=== PATIENT | female | born 1985 | race American Indian/Alaskan Native ===

== ENCOUNTER 2017-01-19 14:03 | Outpatient (CLI) | payer MEDICAID ==
--- NOTE | 2017-01-20 08:36 | Ultrasound Report ---
OB LIMITED INDICATION: GASTON. COMPARISON: None similar. TECHNIQUE: Transabdominal grayscale ultrasound with Doppler interrogation. Gestation: Berry Position: Cephalic Amniotic Fluid: WNL (7-24 cm) GASTON = 10.7 cm Heart Rate: 157 BPM
== END 2017-01-19 15:55 | disposition home or self-care (01) ==
LOC: TRG 14:03
PROVIDERS: ATTEND Obstetrics & Gynecology
DX: O47.1 False labor at or after 37 completed weeks of gestation (principal); Z3A.38 38 weeks gestation of pregnancy
CPT/HCPCS: 76815

== ENCOUNTER 2017-01-28 11:20 | Inpatient (IN) | payer MEDICAID ==
[2017-01-28 13:22] LABS: Hematocrit 33.5 % (30.3-42.9); Hemoglobin 11.3 gm/dl (10.1-14.3); Mean Corpuscular HGB Conc 34 % (30-34); Mean Corpuscular Hemoglobin 29 pg (28-32); Mean Corpuscular Volume 87 fl (79-97); Platelet Count 123 K/mm3 (140-440); Red Blood Count 3.85 M/mm3 (3.65-5.03); Red Cell Distribution Width 14.1 % (13.2-15.2)
[2017-01-28 13:43] LABS: Alanine Aminotransferase 10 units/L (7-56); Lactate Dehydrogenase 138 units/L (91-180); Uric Acid 6.3 mg/dL (3.5-7.6)
[2017-01-28 14:23] LABS: Bilirubin,Urine NEG (Negative); Blood,Urine NEG (Negative); Ketones,Urine NEG (Negative); Leukocyte Esterase,Urine NEG (Negative); Mucus,Urine FEW /HPF; Nitrite,Urine NEG (Negative); Protein,Urine <15 mg/dL mg/dL (Negative); Urobilinogen,Urine < 2.0 mg/dL (<2.0)
[2017-01-28] MEDS ORDERED: XYLOCAINE 2% INFILTRATI ONE (19:17)
[2017-01-28] MEDS ORDERED: PHENERGAN PO PRN (19:17)
[2017-01-28] MEDS ORDERED: NARCAN 0.4 MG/1 ML IV PRN (19:17)
[2017-01-28] MEDS ORDERED: ZOFRAN IV PRN (19:17)
[2017-01-28] MEDS ORDERED: POLYCILLIN/NS 2 GM/100 ML 2 GM/100 ML BAG IV ONE (19:17)
[2017-01-28] MEDS ORDERED: STADOL IV PRN (19:17)
[2017-01-28] MEDS ORDERED: BRETHINE IVP PRN (19:17)
[2017-01-28] MEDS ORDERED: SUBLIMAZE IV PRN (19:17)
[2017-01-28] MEDS ORDERED: MINERAL OIL PO PRN (19:17)
[2017-01-28] MEDS ORDERED: ePHEDrine SULFATE IV PRN ×2 (19:17→22:51)
[2017-01-28] MEDS ORDERED: BRETHINE SUB-Q PRN (19:17)
--- NOTE | 2017-01-28 19:23 | History and Physical Report ---
History of Present Illness Date of examination: 01/28/17 Chief complaint: Elevated BP's History of present illness: Pt is a 31yo BF EDC 01/28/17; EGA 40 0/7 weeks presents to L&D from the office at [facility] for evaluation of elevated BP's. She complained of headache but denies blurred vision or epigatric pains. course has been complicated by history of IUFD @ term, and history of delivery at 20 weeks for which she sees [facility] for weekly progesterone injections. records are available and GBS is negative. Past History Past Medical History: no pertinent history Past Surgical History: no surgical history [employer] History: herpes Family/Genetic History: none Social history: no significant social history, single - Obstetrical History Expected Date of Delivery: 01/28/17 Actual Gestation: 40 Week(s) 0 Day(s) : 7 Medications and Allergies Allergies Allergy/AdvReac Type Severity Reaction Status Date / Time No Known Allergies Allergy Verified 12/08/14 17:16 Home Medications Medication Instructions Recorded Confirmed Last Taken Type No Known Home Medications [No 12/08/14 12/08/14 Unknown History Reported Home Medications] Active Meds: Active Medications Butorphanol Tartrate (Stadol) 2 mg IV Q2H PRN PRN Reason: Pain , Severe (7-10) Ephedrine Sulfate (Ephedrine Sulfate) 10 mg IV Q2M PRN PRN Reason: Hypotension Stop: 01/28/17 19:22 Fentanyl (Sublimaze) 100 mcg IV Q2H PRN PRN Reason: Labor Pain Ampicillin Sodium (Polycillin/Ns 1 Gm/50 Ml) 1 gm in 50 mls @ 100 mls/hr IV Q4HR PAULINE PRN Reason: Protocol Ampicillin Sodium (Polycillin/Ns 2 Gm/100 Ml) 2 gm in 100 mls @ 100 mls/hr IV ONCE ONE PRN Reason: Protocol Stop: 01/28/17 20:16 Lactated Ringer's (Lactated Ringers) 1,000 mls @ 125 mls/hr IV DIRECT PAULINE Oxytocin/Sodium Chloride (Pitocin/Ns 20 Unit/1000ml Drip) 20 units in 1,000 mls @ 125 mls/hr IV DIRECT PAULINE Oxytocin/Sodium Chloride (Pitocin/Ns 30 Unit/500ml) 30 units in 500 mls @ 1 mls /hr IV TITR PAULINE; 1 MILLIUNITS/MIN PRN Reason: Protocol Lidocaine (Xylocaine 2%) 20 ml INFILTRATI ONCE ONE Stop: 01/28/17 19:18 Mineral Oil (Mineral Oil) 30 ml PO QHS PRN PRN Reason: Constipation Naloxone HCl (Narcan 0.4 Mg/1 Ml) 0.1 mg IV Q2MIN PRN PRN Reason: Res Rate </= 8 or 02 SAT < 92% Ondansetron HCl (Zofran) 4 mg IV Q8H PRN PRN Reason: Nausea And Vomiting Review of Systems All systems: negative - Vital Signs Vital signs: Vital Signs Pulse Pulse Ox 97 H 97 01/28/17 11:57 01/28/17 11:57 Temp Pulse Resp BP Pulse Ox 93 H 120/79 97 01/28/17 14:50 01/28/17 14:29 01/28/17 14:50 - Physical Exam Breasts: Positive: deferred Cardiovascular: Regular rate Lungs: Positive: Clear to auscultation Abdomen: Positive: normal appearance Genitourinary (Female): Positive: normal external genitalia Vagina: Positive: normal moisture Uterus: Positive: enlarged Extremities: Positive: normal - Obstetrical FHR: category 1 Uterine Contraction Monitor Mode: External Cervical Dilatation: 3.5 Cervical Effacement Percentage: 50 station: -3 Uterine Contraction Pattern: Irregular Uterine Tone Measurement Phase: Contraction Uterine Contraction Intensity: Mild Results Result Diagrams: 01/28/17 13:05 01/28/17 13:05 Abnormal lab results 01/28/17 01/28/17 Range/Units 13:05 13:05 Plt Count 123 L (140-440) K/mm3 Creatinine 0.6 L (0.7-1.2) mg/dL All other labs normal. Ultrasound: report reviewed (BPP 01/14; GASTON 8.4) Assessment and Plan - Patient Problems (1) 40 weeks gestation of Onset Date: 01/28/17 Current Visit: Yes Status: Acute Plan to address problem: A: IUP @ 40 0/7 weeks PIH H/O IUFD Thrombocytopenia P: Admit to L&D for pitocin induction/augmentation of labor Expectant vaginal delivery
[2017-01-28] MEDS ORDERED: PITOCin/NS 20 UNIT/1000ML DRIP 20 UNITS/1,000 ML BAG IV SCH (20:00)
[2017-01-28] MEDS ORDERED: PITOCin/NS 30 UNIT/500ML 30 UNITS/500 ML BAG IV SCH ×2 (20:00)
[2017-01-28] MEDS: LACTATED RINGERS 1,000 ML IV SCH (21:23)
[2017-01-28] MEDS ORDERED: NARCAN 2 MG/2 ML IV PRN (22:51)
--- NOTE | 2017-01-28 22:51 | Anesthesia Consultation ---
Anesthesia Consult and Med Hx Date of service: 01/28/17 - Airway Anesthetic Teeth Evaluation: Good ROM Head & Neck: Adequate Mental/Hyoid Distance: Adequate Mallampati Class: Class II Intubation Access Assessment: Good - Pulmonary Exam CTA: Yes - Cardiac Exam Cardiac Exam: No Murmur - Pre-Operative Health Status ASA Pre-Surgery Classification: ASA2 Proposed Anesthetic Plan: Epidural - Pulmonary Hx Asthma: No COPD: No Hx Pneumonia: No - Cardiovascular System Hx Hypertension: Yes - Central Nervous System Hx Seizures: No Hx Psychiatric Problems: No - Endocrine Hx Renal Disease: No Hx Hypothyroidism: No Hx Hyperthyroidism: No - Hematic Hx Anemia: Yes (childhood) Hx Sickle Cell Disease: No - Other Systems Hx Alcohol Use: No
[2017-01-28] MEDS ORDERED: fentaNYL-BUPIV 2 MCG/ML-0.125% 200 MCG/100 ML BAG EPIDURAL SCH (23:00)
[2017-01-28] MEDS ORDERED: POLYCILLIN/NS 1 GM/50 ML 1 GM/50 ML BAG IV SCH (23:20)
[2017-01-29] MEDS: LACTATED RINGERS 1,000 ML IV SCH (02:34)
[2017-01-29] MEDS: PITOCin/NS 20 UNIT/1000ML DRIP 20 UNITS/1,000 ML BAG IV SCH ×2 (04:30→05:45)
--- NOTE | 2017-01-29 04:32 | Procedure Note ---
OB Delivery Note - Delivery Date of Delivery: 01/29/17 Surgeon: ANDREE BRANCH Estimated blood loss: other (150cc) - Vaginal Delivery presentation: vertex Delivery position: OA Delivery induction: oxytocin Delivery augmentation: rupture of membranes, pitocin Delivery monitor: external FHT, external uterine Route of delivery: Delivery placenta: spontaneous Delivery cord: nuchal cord (x1), 3 umbilical vessels Episiotomy: none Delivery laceration: none Anesthesia: epidural Delivery comments: Infant delivered OA over intact perineum with epidural anesthesia, and tight nuchal cord x 1 reduced. placed on Mom's chest for [id number] bonding and delayed cord clamping. - A at 1 minute: 9 at 5 minutes: 9 Infant Gender: Male (3565gms)
[2017-01-29] MEDS ORDERED: ZOFRAN IV PRN (04:37)
[2017-01-29] MEDS ORDERED: DULCOLAX PR PRN (04:37)
[2017-01-29] MEDS ORDERED: BENADRYL PO PRN (04:37)
[2017-01-29] MEDS ORDERED: PHENERGAN PR PRN (04:37)
[2017-01-29] MEDS ORDERED: PHENERGAN PO PRN (04:37)
[2017-01-29] MEDS ORDERED: MILK OF MAGNESIA PO PRN (04:37)
[2017-01-29] MEDS ORDERED: TUCKS PAD TP PRN (04:37)
[2017-01-29] MEDS ORDERED: LANSINOH TP PRN (04:37)
[2017-01-29] MEDS ORDERED: TYLENOL PO PRN (04:37)
[2017-01-29] MEDS ORDERED: SODIUM CHLORIDE FLUSH SYRINGE 10 ML IV PRN (05:00)
[2017-01-29] MEDS: NORCO 5/325 PO PRN ×3 (05:44→20:49)
--- NOTE | 2017-01-29 07:53 | Ultrasound Report ---
ULTRASOUND BIOPHYSICAL PROFILE: History: well being Technique: Transabdominal ultrasound with Doppler interrogation. 2 - breathing movements 2 - movements 2 - posture and tone 2 - Qualitative amniotic fluid volume 8 - TOTAL SCORE OF POSSIBLE 8 Heart Rate (bpm) 160
--- NOTE | 2017-01-29 07:53 | Ultrasound Report ---
ULTRASOUND OB LIMITED History: well being, evaluate amniotic fluid Technique: Transabdominal ultrasound with Doppler interrogation. Gestation: Single Position: Cephalic Amniotic Fluid: Within normal limits GASTON = 8.4 cm Heart Rate: 156 BPM
[2017-01-29] MEDS: PRENATAL VITAMIN PO SCH (09:44)
[2017-01-29] MEDS: COLACE PO SCH ×2 (09:44→22:56)
[2017-01-29] MEDS: SENOKOT S PO SCH ×2 (09:44→22:56)
[2017-01-29] MEDS: FEOSOL PO SCH ×2 (09:44→22:56)
[2017-01-29] MEDS: MOTRIN PO SCH ×2 (10:03→20:50)
[2017-01-29 17:06] LABS: Hemoglobin 10.1 gm/dl (10.1-14.3)
[2017-01-30] MEDS: MOTRIN PO SCH ×3 (04:35→11:45)
[2017-01-30] MEDS: NORCO 5/325 PO PRN (04:36)
[2017-01-30] MEDS ORDERED: M-M-R II VACCINE SUB-Q ONE (04:37)
[2017-01-30] MEDS ORDERED: BOOSTRIX IM ONE (06:00)
--- NOTE | 2017-01-30 07:26 | Progress Note ---
Assessment and Plan PPD# 1 s/p -Doing well P: -Continue routine care -Anticipate discharge in 24-48 hours - Patient Problems (1) (normal spontaneous vaginal delivery) Current Visit: Yes Status: Acute Subjective - Subjective Date of service: 01/30/17 Principal diagnosis: PPD# 1 Interval history: Patient seen and examined, stable doing well no issues Patient reports: appetite normal, voiding normally, pain well controlled, flatus , ambulating normally, no dizzy ambulation, no nauseated Sparks: doing well Objective - Vital Signs Latest vital signs: Vital Signs Temp Pulse Resp BP 01/30/17 00:00 98.6 F 69 16 128/71 01/29/17 20:50 18 01/29/17 20:49 18 01/29/17 20:00 98.6 F 71 16 128/71 01/29/17 16:42 98.2 F 78 18 134/72 01/29/17 12:19 98.0 F 84 20 140/90 01/29/17 08:18 98.5 F 80 20 128/88 01/29/17 07:31 83 142/84 Intake and Output 01/29/17 01/30/17 01/30/17 22:59 06:59 14:59 Intake Total 360 600 Balance 360 600 Intake: Oral 360 Intake, Free Water 600 Other: Total, Intake Amount 240 - Exam Abdomen: Present: normal appearance, soft. Absent: distention, tenderness, guarding, rigidity Uterus: Present: fundal height below umbilicus. Absent: tenderness Extremities: Present: normal - Labs Labs: Abnormal lab results 01/29/17 Range/Units 16:52 Hct 30.0 L (30.3-42.9) %
--- NOTE | 2017-01-30 07:31 | Discharge Summary ---
Providers - Providers Date of Admission: 01/28/17 19:25 Date of discharge: 01/31/17 Attending physician: ANDREE BRANCH Primary care physician: ANDREE BRANCH Hospitalization Reason for admission: induction of labor, IUP at term Delivery: Episiotomy: none Laceration: none Other procedures: none complications: none Discharge diagnosis: IUP at term delivered Brady baby: male Condition at discharge: Good Disposition: DC-01 TO HOME OR SELFCARE - Discharge Diagnoses (1) (normal spontaneous vaginal delivery) Status: Acute Plan - Discharge Medications Prescriptions: Ibuprofen [Motrin 600 MG tab] 600 mg PO Q8H PRN #30 tablet PRN Reason: Pain Multivitamin with Iron [Multivitamins with Iron] 1 each PO DAILY #30 tablet - Provider Discharge Summary Activity: no sex for 6 weeks, no heavy lifting 4 weeks, no strenuous exercise Additional instructions: [] Smoking cessation referral if applicable(refer to patient education folder for contact #) [] Refer to [facility]'s [facility] Booklet Call your doctor immediately for: * Fever > 100.5 * Heavy vaginal bleeding ( >1 pad per hour) * Severe persistent headache * Shortness of breath * Reddened, hot, painful area to leg or breast * Drainage or odor from incision. * Keep incision clean and dry at all times and follow doctor's instructions regarding bathing/showering - Follow up plan Follow up: ANDREE BRANCH MD [Primary Care Provider] - 6 Weeks Forms: [facility] Discharge Summary
[2017-01-30] MEDS: PRENATAL VITAMIN PO SCH (11:00)
[2017-01-30] MEDS: FEOSOL PO SCH (11:00)
[2017-01-30] MEDS: SENOKOT S PO SCH (12:10)
[2017-01-30] MEDS: COLACE PO SCH (12:10)
[2017-01-30 14:24] VITALS: BP 146/76
== END 2017-01-30 13:30 | disposition home or self-care (01) | DRG 775 ==
LOC: TRG 11:20 → LD 11:35 → TRG 19:24 → LD 19:25 → OB 01-29 05:44
PROVIDERS: ADMIT Obstetrics & Gynecology; ATTEND Obstetrics & Gynecology
PROC: 10E0XZZ Delivery of Products of Conception, External Approach (ICD-10-PCS; principal; 2017-01-29)
PROC: 3E033VJ Introduction of Other Hormone into Peripheral Vein, Percutaneous Approach (ICD-10-PCS; 2017-01-29)
PROC: 00HU33Z Insertion of Infusion Device into Spinal Canal, Percutaneous Approach (ICD-10-PCS; 2017-01-29)
PROC: 3E0R3CZ (ICD-10-PCS; 2017-01-29)
PROC: 3E0234Z Introduction of Serum, Toxoid and Vaccine into Muscle, Percutaneous Approach (ICD-10-PCS; 2017-01-29)
DX: O13.3 Gestational [pregnancy-induced] hypertension without significant proteinuria, third trimester (principal); O69.1XX0 Labor and delivery complicated by cord around neck, with compression, not applicable or unspecified; O99.12 Other diseases of the blood and blood-forming organs and certain disorders involving the immune mechanism complicating childbirth; D69.6 Thrombocytopenia, unspecified; Z37.0 Single live birth; Z3A.40 40 weeks gestation of pregnancy
CPT/HCPCS: 36415; 76815; 76819; 81001; 82565; 83615; 84450; 84460; 84550; 85014; 85018; 85027; 90471; 90715; 99211; G0463; J2590; J3010; J7120